=== PATIENT | female | born 1990 | race Caucasian/White ===

== ENCOUNTER 2016-08-15 08:08 | Inpatient (IN) | payer OTHER ==
[2016-08-15 10:42] LABS: ROM Internal QC QC Line Present
[2016-08-15] MEDS ORDERED: Buffered Lidocaine 1% SYR 3ML* 3 ML/SYR SYRINGE INTRADERM PRN (11:04)
[2016-08-15 11:37] LABS: Hematocrit 39 % (35-47); Hemoglobin 13.4 g/dl (12.0-16.0); Mean Corpuscular HGB Conc 34 g/dl (31-36); Mean Corpuscular Hemoglobin 29 pg (27-31); Mean Corpuscular Volume 86 fL (80-97); Mean Platelet Volume 9 um3 (7.4-10.4); Red Cell Distribution Width 14 % (10.5-15); White Blood Count 15.2 10^3/ul (3.5-10.8)
[2016-08-15 11:41] LABS: Add Diff/Slide Review? Slide Review Added; Comments Flag Yes
[2016-08-15 12:54] LABS: Eosinophils % 1 % (0-6); Immature Granulocytes 5 % (0-9); Neutrophil % 87 % (38-83); RBC Morphology Normal (Normal)
[2016-08-15] MEDS: Oxytocin in LR* 20 UNITS/1,000 ML BAG IVPB SCH (14:30)
[2016-08-16] MEDS ORDERED: OBEPIDURAL* 250 ML ONE (09:52)
[2016-08-16] MEDS ORDERED: Phenylephrine IV* 40 MCG/ML 10 ML SYRINGE IV PUSH PRN ×2 (10:45)
[2016-08-16] MEDS ORDERED: Sodium Citrate/Citric Acid* 15 ML UDC PO PRN (10:45)
[2016-08-16] MEDS ORDERED: Famotidine TAB* 20 MG PO PRN (10:45)
[2016-08-16] MEDS ORDERED: OBEPIDURAL* 250 ML EPIDURAL SCH (11:00)
[2016-08-16] MEDS: Oxytocin in LR* 20 UNITS/1,000 ML BAG IVPB SCH (15:06)
[2016-08-16] MEDS ORDERED: Misoprostol TAB* 200 MCG PR ONE (16:58)
[2016-08-16] MEDS ORDERED: Dibucaine 1% 28.35 GM TUBE PR PRN (16:58)
[2016-08-16] MEDS ORDERED: Acetaminophen TAB* 325 MG PO PRN (16:58)
[2016-08-16] MEDS ORDERED: Oxytocin in LR* 20 UNITS/1,000 ML BAG IVPB SCH (17:00)
[2016-08-16] MEDS ORDERED: Misoprostol TAB* 200 MCG ONE (17:06)
[2016-08-16] MEDS: Witch Hazel PAD* JAR TOPICAL PRN (18:37)
[2016-08-16] MEDS: Ibuprofen TAB* 600 MG PO PRN (18:38)
[2016-08-16] MEDS: Docusate CAP* 100 MG PO SCH (22:28)
[2016-08-17] MEDS: Ibuprofen TAB* 600 MG PO PRN ×3 (01:12→16:19)
[2016-08-17] MEDS: Docusate CAP* 100 MG PO SCH ×3 (08:20→20:09)
[2016-08-17 08:46] LABS: Hematocrit 30 % (35-47); Hemoglobin 10.2 g/dl (12.0-16.0); Mean Corpuscular HGB Conc 34 g/dl (31-36); Mean Corpuscular Hemoglobin 30 pg (27-31); Mean Corpuscular Volume 86 fL (80-97); Mean Platelet Volume 9 um3 (7.4-10.4); Red Blood Count 3.45 10^6/ul (4.0-5.4); Red Cell Distribution Width 14 % (10.5-15); White Blood Count 16.1 10^3/ul (3.5-10.8)
[2016-08-17 08:47] LABS: Add Diff/Slide Review? Slide Review Added; Comments Flag Yes
[2016-08-17] MEDS ORDERED: Ferrous Gluconate TAB* 324 MG TAB PO SCH (09:00)
[2016-08-17 10:41] LABS: Hypochromasia 1+; Immature Granulocytes 6 % (0-9); Metamyelocytes % 1 % (0-2); Myelocytes % 2 % (0-1); Neutrophil % 77 % (38-83)
[2016-08-17] MEDS: Witch Hazel PAD* JAR TOPICAL PRN (19:09)
[2016-08-18] MEDS: Ibuprofen TAB* 600 MG PO PRN ×2 (00:47→08:14)
[2016-08-18 08:06] VITALS: BP 106/68
[2016-08-18] MEDS: Docusate CAP* 100 MG PO SCH (08:14)
--- NOTE | 2016-08-18 13:39 | PTEDU ---
Patient Name: ANA CHIU ANA CHIU selected video: BBOB: Nurturing Your Gorgeous \T\Growing Baby by to view o n 08/18/2016 at 1:38:29 PM [id number]
--- NOTE | 2016-08-18 13:45 | PTEDU ---
Patient Name: ANA CHIU APPLEANA selected video: Follow Me Mum: The Gale to Successful to view on 08/18/2016 at 1:44:[address] [id number]
== END 2016-08-18 15:22 | disposition home or self-care (01) | DRG 775 ==
LOC: MCHOBOUT 08:08 → MCHOB 10:59
PROVIDERS: ADMIT Midwife; ATTEND Midwife
PROC: 10E0XZZ Delivery of Products of Conception, External Approach (ICD-10-PCS; principal; 2016-08-16)
PROC: 0DQR0ZZ Repair Anal Sphincter, Open Approach (ICD-10-PCS; 2016-08-16)
PROC: 3E033VJ Introduction of Other Hormone into Peripheral Vein, Percutaneous Approach (ICD-10-PCS; 2016-08-16)
DX: O42.92 Full-term premature rupture of membranes, unspecified as to length of time between rupture and onset of labor (principal); O70.1 Second degree perineal laceration during delivery; Z3A.38 38 weeks gestation of pregnancy; Z37.0 Single live birth; Z88.0 Allergy status to penicillin
CPT/HCPCS: 36415; 84112; 85025; 86850; 86900; 86901; A9270-GY